=== PATIENT | female | born 1985 | race Caucasian/White ===

== ENCOUNTER 2021-12-26 08:00 | Outpatient (CLI) | payer OTHER, MEDICAID | END 2021-12-26 23:59 | disposition home or self-care (01) | LOC: LAB.WC 08:00 | PROVIDERS: ATTEND Obstetrics & Gynecology | DX: Z36.85 Encounter for antenatal screening for Streptococcus B (principal) | CPT/HCPCS: 87797 ==

== ENCOUNTER 2022-01-20 07:20 | Inpatient (IN) | payer OTHER, MEDICAID ==
[2022-01-20] MEDS ORDERED: LIDOCAINE/PRILOCAINE 2.5% CREAM 5 GM TUBE TOP ONE (08:24)
[2022-01-20] MEDS ORDERED: CARBOPROST TROMETHAMINE 250 MCG/ML AMP IM PRN (08:49)
[2022-01-20] MEDS ORDERED: NIFEdipine 10 MG CAPSULE PO PRN (08:49)
[2022-01-20] MEDS ORDERED: OXYTOCIN/SODIUM CHLORIDE 500 ML IV PRN (08:49)
[2022-01-20] MEDS ORDERED: miSOPROStoL 200 MCG TABLET BC PRN (08:49)
[2022-01-20] MEDS ORDERED: TRANEXAMIC ACID IN NACL 1,000 MG/100 ML BAG IV PRN (08:49)
[2022-01-20] MEDS ORDERED: METHYLERGONOVINE 0.2 MG/ML VIAL IM PRN (08:49)
[2022-01-20] MEDS ORDERED: SODIUM CHLORIDE FLUSH 0.9% 10 ML SYRINGE IVP PRN (08:49)
[2022-01-20] MEDS ORDERED: fentaNYL 100 MCG/2 ML VIAL IVP PRN (08:49)
[2022-01-20] MEDS ORDERED: hydrALAZINE INJ 20 MG/ML VIAL IVP PRN ×2 (08:49)
[2022-01-20] MEDS ORDERED: lidocaine 1% 20 ML MDV ID PRN (08:49)
[2022-01-20] MEDS ORDERED: miSOPROStoL 200 MCG TABLET PR PRN (08:49)
[2022-01-20] MEDS ORDERED: LABETALOL 20 MG/4 ML SYRINGE IVP PRN ×3 (08:49)
[2022-01-20] MEDS ORDERED: TERBUTALINE 1 MG/ML VIAL SUBQ PRN (08:49)
[2022-01-20] MEDS ORDERED: OXYTOCIN 10 UNIT/ML VIAL IM PRN (08:49)
--- NOTE | 2022-01-20 09:00 | HISTORY & PHYSICAL EXAMINATION ---
Admit History - : 2 Parity: 1 Care: positive: [facility] Risk/History: positive: None Complications This : positive: None Smoking Status: Never smoker - Mother's Labs Mother's Blood Type: positive: A Mother's RH: positive: Negative GBS: positive: Group B Step Negative Rubella Status: positive: Immune - Other Maternal History Other Maternal History: HPI: 37-year-old -0-0-1 at 39 weeks 5 days gestation presenting for induction of labor at term. She has good movement. Denies loss of fluid. No JHA/BV or RUQP. No vaginal bleeding. Denies nausea and vomiting. Denies urinary urgency or dysuria. She did have a couple contractions over the weekend, but nothing regular. All other symptoms reviewed and were negative except per HPI. Course LMP: 04/17/2021 SLAVA by LMP: 01/21/2022 Initial U/S: 09/11/2021 Final SLAVA: 01/21/2022 Problem: History of anal fistula. Developed during without injury or history of Crohn's disease. Unsure of etiology. Discussed risk of recurrence with significant vaginal tear. Was perianal to left skin. History of depression: Stopped sertraline due to symptoms. Wants to wait for at this point and will consider alternate medication if necessary. Pre- weight: 160 BMI:25.9 A negative/Rubella immune Rhogam given: 10/29/21 VZV: immune Genetic testing: FAS: EFW 29%ile, posterior placenta, normal JORDAN. Glucola: 83 (done 09/20/21) Influenza: Declined today. TDAP:given 11/18 GBS @36.0- Negative HSV:Denies in self or partner Breast Pump Rx:has one she likes MOD:, likely 39-week induction. Scheduled 01/20/22. Desires epidural. pp contraception:Partner vasectomy pap: 07/10/21-normal Initial GC/CT: negative PMH Anxiety disorder PSH Breast augmentation Anal fistula repair OB History 2019, 39 weeks, , male, 7 pounds 2 ounces, perianal fistula during SH Denies tobacco, alcohol, drugs Family History Noncontributory Allergies No known drug allergies Medications vitamins Ferrous sulfate Physical exam: General: Alert, oriented, no acute distress Head: Normal cephalic atraumatic Eyes: PERRLA, extraocular motions intact. Respiratory: Normal rate of respiration. No accessory muscle use, normal respiratory effort. Cardiovascular: Regular rate and rhythm Abdomen: Gravid, nontender, nondistended Extremities: Normal range of motion Neuro: Oriented x3. Normal movements Psych: Appropriate mood and affect. Normal judgment and insight SVE: 04/11/-3 FHT: 125 BPM baseline, moderate variability, accelerations present, no decelerations [place]: quiescent Meds/Allgy - Allergies Allergies/Adverse Reactions: Allergies Allergy/AdvReac Type Severity Reaction Status Date / Time No Known Drug Allergies Allergy Verified 01/20/22 13:37 Plan for Labor - Plan For Labor I expect patient to be DC'd or transferred within 96 hours.: Yes Plan for Labor: Plan 37-year-old -0-0-1 at 39 weeks 5 days gestation admitted for induction of labor 1. Cervical ripening -Admit for observation, cervical ripening -Misoprostol 25 mcg buccal every 4 hours 2. 39 weeks gestation -Continuous monitoring -Epidural if in active labor 3. History of depression 4. History of anal fistula -Prior to delivery, likely not an obstetrical issue.
[2022-01-20 09:51] LABS: BASOPHILS % (AUTO) 0.2 %; EOSINOPHILS # (AUTO) 0.1 10^3/uL (0.0-0.7); EOSINOPHILS % (AUTO) 1.1 %; HCT - HEMATOCRIT 35.4 % (37.0-47.0); HGB - HEMOGLOBIN 12.6 g/dL (12.0-16.0); LYMPHOCYTES # (AUTO) 1.1 10^3/uL (1.5-3.5); LYMPHOCYTES % (AUTO) 23.6 %; MEAN CORPUSCULAR HEMOGLOBIN 37.2 pg (27.0-31.0); MEAN CORPUSCULAR HGB CONC 35.6 g/dL (32.0-36.0); MEAN CORPUSCULAR VOLUME 104.4 fL (81.0-99.0); MEAN PLATELET VOLUME 11.7 fL (7.9-10.8); MONOCYTES # (AUTO) 0.2 10^3/uL (0.0-1.0); MONOCYTES % (AUTO) 4.9 %; NEUTROPHILS # (AUTO) 3.3 10^3/uL (1.5-6.6); NEUTROPHILS % (AUTO) 69.8 %; PLT - PLATELET COUNT 169 10^3/uL (130-450); RED BLOOD COUNT 3.39 10^6/uL (4.20-5.40); RED CELL DISTRIBUTION WIDTH 12.8 % (12.0-15.0); WHITE BLOOD COUNT 4.7 x10^3/uL (4.8-10.8)
[2022-01-20] MEDS: miSOPROStoL 100 MCG TABLET BC SCH ×4 (09:51→22:45)
[2022-01-20] MEDS: SODIUM CHLORIDE FLUSH 0.9% 10 ML SYRINGE IVP SCH ×2 (09:53→23:56)
--- NOTE | 2022-01-20 20:05 | PROVIDER PROGRESS NOTE ---
Labor Progress Note - Uterine Monitoring Uterine Monitoring Mode: positive: External toco Contraction Frequency (min/apart): 8-10 Contraction Intensity: positive: Moderate Uterine Resting Tone: positive: Soft - Monitoring Monitor Mode: positive: External ultrasound Heart Rate Baseline: 120 Heart Rate Variability: positive: Moderate (6-25 bmp) Accelerations: positive: Present, 15x15 Decelerations: positive: None Strip Review: positive: Category I - Labor Progress Note Labor Progress Note/Additional Text: Patient comfortable, but feeling contractions. Last cervical exam of /-3, soft, posterior. Plan for this time to continue misoprostol for cervical ripening.
--- NOTE | 2022-01-20 23:32 | PROVIDER PROGRESS NOTE ---
Labor Progress Note - Uterine Monitoring Uterine Monitoring Mode: positive: External toco Contraction Frequency (min/apart): 2-7 Contraction Intensity: positive: Moderate to strong Uterine Resting Tone: positive: Soft - Monitoring Monitor Mode: positive: External ultrasound Heart Rate Baseline: 130 Heart Rate Variability: positive: Moderate (6-25 bmp) Accelerations: positive: Present, 15x15 Decelerations: positive: None Strip Review: positive: Category I - Vaginal Exam Dilation (in cm): 4 Effacement (%): 50 Station: -2 Cervical Position: Midposition - Labor Progress Note Labor Progress Note/Additional Text: Patient with significant cervical change since last check. Received dose misoprostol approximately 1 hour ago. Cervical exam currently 4 cm with head well engaged. Amniotomy was performed with a moderate amount of clear fluid. We will augment with oxytocin after 4 hours after misoprostol if necessary.
[2022-01-21] MEDS: LACTATED RINGERS 1,000 ML IV SCH ×2 (00:05→04:52)
[2022-01-21] MEDS ORDERED: ROPIVACAINE 0.2% 200 MG/100 ML BAG EP ONE (00:16)
--- NOTE | 2022-01-21 01:00 | ANESTHESIA ---
Pre-Anesthesia VS, & Labs - Diagnosis active labor - Procedure vaginal delivery Vital Signs: Temp Pulse Resp BP Pulse Ox O2 Flow Rate 37.0 C 62 16 111/72 01/20/22 12:30 01/20/22 12:30 01/20/22 12:30 01/20/22 12:30 Height: 5 ft 7 in Weight (kg): 71.668 kg Body Mass Index: 24.7 BMI Classification: Normal - NPO Other (clear liquids) - Is Patient ?: Yes - Lab Results Current Lab Results: Laboratory Tests 01/20/22 09:56: Blood Type Recheck A NEGATIVE 01/20/22 09:00: Blood Type A NEGATIVE, Antibody Screen NEGATIVE 01/20/22 09:00: WBC 4.7 L, RBC 3.39 L, Hgb 12.6, Hct 35.4 L, MCV 104.4 H, MCH 37.2 H, MCHC 35.6, RDW 12.8, Plt Count 169, MPV 11.7 H, Neut # (Auto) 3.3, Lymph # (Auto) 1.1 L, [place] # (Auto) 0.2, Eos # (Auto) 0.1, Baso # (Auto) 0.0, Absolute Nucleated RBC 0.00, Nucleated RBC % 0.0 Lab results reviewed: Yes Fish Bones: 01/20/22 09:00 Home Medications and Allergies Active Medications Carboprost Tromethamine (Carboprost Tromethamine 250 Mcg/Ml Amp) 250 mcg IM .ONCE PRN PRN Reason: Hemorrhage Fentanyl (Fentanyl 100 Mcg/2 Ml Vial) 50 mcg IVP Q1H PRN PRN Reason: Severe Pain (score 7-10) Hydralazine HCl (Hydralazine Inj 20 Mg/Ml Vial) 5 - 10 mg IVP Q20M PRN; Protocol PRN Reason: SBP> or= 160 OR DBP> or= 110 Hydralazine HCl (Hydralazine Inj 20 Mg/Ml Vial) 10 mg IVP .ONCE PRN; Protocol PRN Reason: SBP> or= 160 OR DBP> or= 110 Oxytocin/Sodium Chloride (Pitocin/Sodium Chloride) 500 mls @ 999 mls/hr IV PRN PRN; Protocol PRN Reason: POST- HEMORR PREVENTION Tranexamic Acid (Tranexamic 1,000 Mg/100ml-Nacl) 1,000 mg in 100 mls @ 600 mls/hr IV Q30M PRN PRN Reason: EBL >1200mL and within 3hr Lactated Ringer's (Lr) 1,000 mls @ 125 mls/hr IV .Q8H [facility] Last Admin: 01/21/22 00:05 Dose: 125 mls/hr Labetalol HCl (Labetalol 20 Mg/4 Ml Syringe) 20 - 80 mg IVP Q10M PRN; Protocol PRN Reason: SBP> or= 160 OR DBP> or= 110 Labetalol HCl (Labetalol 20 Mg/4 Ml Syringe) 20 mg IVP .ONCE PRN; Protocol PRN Reason: SBP> or= 160 OR DBP> or= 110 Labetalol HCl (Labetalol 20 Mg/4 Ml Syringe) 20 - 40 mg IVP Q10M PRN; Protocol PRN Reason: SBP> or= 160 OR DBP> or= 110 Lidocaine HCl (Lidocaine 1% 20 Ml Mdv) 20 ml ID .ONCE PRN PRN Reason: PERINEAL REPAIR Stop: 01/23/22 08:49 Methylergonovine Maleate (Methylergonovine 0.2 Mg/Ml Vial) 0.2 mg IM .ONCE PRN PRN Reason: Hemorrhage Misoprostol (Misoprostol 200 Mcg Tablet) 600 mcg BC .ONCE PRN PRN Reason: Hemorrhage Misoprostol (Misoprostol 200 Mcg Tablet) 800 mcg MN .ONCE PRN PRN Reason: Hemorrhage Misoprostol (Misoprostol 100 Mcg Tablet) 25 mcg BC Q4H [facility] Last Admin: 01/20/22 22:45 Dose: 25 mcg Nifedipine (Nifedipine 10 Mg Capsule) 10 - 20 mg PO Q20M PRN; Protocol PRN Reason: SBP> or= 160 OR DBP> or= 110 Oxytocin (Oxytocin 10 Unit/Ml Vial) 10 unit IM .ONCE PRN PRN Reason: Step One if no IV access. Sodium Chloride (Sodium Chloride Flush 0.9% 10 Ml Syringe) 10 ml IVP PRN PRN PRN Reason: NEEDED PER PROVIDER ORDERS Sodium Chloride (Sodium Chloride Flush 0.9% 10 Ml Syringe) 10 ml IVP Q8H [facility] Last Admin: 01/20/22 23:56 Dose: 10 ml Terbutaline Sulfate (Terbutaline 1 Mg/Ml Vial) 0.25 mg SUBQ .ONCE PRN PRN Reason: Tachystole Allergies/Adverse Reactions: Allergies Allergy/AdvReac Type Severity Reaction Status Date / Time No Known Drug Allergies Allergy Verified 01/20/22 13:37 Anes History & Medical History - Anesthetic History Anesthesia Complications: reports: No previous complications - Medical History Cardiovascular: reports: None Pulmonary: reports: None Gastrointestinal: reports: None Urinary: reports: None Neuro: reports: None Musculoskeletal: reports: None Endocrine/Autoimmune: reports: None Blood Disorders: reports: None Skin: reports: None Smoking Status: Never smoker Psychosocial: reports: Depression History of Cancer?: No - Surgical History General: reports: Other (anal fistula repair) Gynecologic: reports: Breast implants - Obstetrical History : 2 Parity: 1 Events: reports: None Complications: reports: None Exam General: Alert, Oriented x3, Cooperative, No acute distress Dental: WNL Mouth Openin Fingerbreadth Neck Mobility: Normal Mallampati classification: II Thyromental Distance: 4-6 cm Mental/Cognitive Status: Alert/Oriented X3, Normal for patient Plan Anesthesia Type: Epidural Consent for Procedure(s) Verified and Reviewed: Yes Code Status: Attempt Resuscitation ASA classification: 2-Mild systemic disease Is this case an emergency?: No
[2022-01-21] MEDS ORDERED: ONDANSETRON 4 MG/2 ML VIAL IVP PRN (01:01)
[2022-01-21] MEDS ORDERED: NALBUPHINE 10 MG/ML AMP IVP PRN (01:01)
[2022-01-21] MEDS ORDERED: ROPIVACAINE 0.2% 200 MG/100 ML BAG EP PRN (01:01)
[2022-01-21] MEDS ORDERED: NALOXONE 0.4 MG/ML VIAL IVP PRN (01:01)
[2022-01-21] MEDS ORDERED: ePHEDrine 50 MG/ML VIAL IVP PRN (01:01)
[2022-01-21] MEDS ORDERED: SIMETHICONE CHEW 80 MG TABLET PO PRN (07:07)
--- NOTE | 2022-01-21 07:07 | DELIVERY NOTE ---
Delivery Note - Labor Labor: positive: Augmented by ARM - Infant Delivery Method Delivery Method: positive: Spontaneous vaginal delivery - Cervical Ripening Method Cervical Ripening Method: positive: Misoprostil - Presentation Presentation: positive: [place] - right occiput anterior - Nuchal Cord Nuchal Cord: positive: None - Anesthetic Anesthetic Type: - Amniotic Fluid Description Amniotic Fluid Description: positive: Clear - Episiotomy Type Episiotomy Type: positive: None - Laceration Laceration: positive: 2nd degree, Periurethral - Delivery Outcome Delivery Outcome: positive: Livebirth - : positive: Placed in direct skin contact with mother, Bulb syringe, [place] used [place] sex: positive: Male - Placenta Placenta: positive: Intact - Estimated Blood Loss Estimated Blood Loss (in cc): 350 - Post Delivery Events Post Delivery Events: positive: No post delivery events - Delivery Comments (Free Text/Narrative) Delivery Comments (Free Text/Narrative): Delivery note procedures preoperative Diagnoses 39 weeks gestation Induction of labor Rh- Postoperative Diagnoses Same Status post spontaneous vaginal delivery of a live dumont Delivery Summary: Patient was placed in the dorsal lithotomy position. Upon maternal pushing the head was delivered atraumatically followed by the anterior shoulder, posterior shoulder, then the remainder of the infant's body. A male was delivered with APGARS of 8 at 1 minute and 9 at 5 minutes. The was placed on its mother's chest . After the cord finished pulsating, the umbilical cord was clamped times two and cut. The placenta delivered intact with three vessel cord. Placenta was not sent to pathology. Thirty units of Pitocin were added to the IV fluid and allowed to run freely. Uterine massage was performed until uterus was deemed firm. [place] patient perineum, a second-degree midline laceration and a urethral laceration was noted. The periurethral laceration was bleeding briskly and was repaired with 2 [id number] stitches of 3-0 chromic. The second degree laceration was noted which was repaired with 3-0 vicryl in the usual fashion. The second Uterus again massaged and found to be firm. Needle and sponge counts were correct. Patient was stable and allowed to recover in L&D room. Infant was stable and remained in room with mother. weight is pending at this time.
[2022-01-21] MEDS ORDERED: LACTATED RINGERS 1,000 ML IV SCH (08:00)
[2022-01-21] MEDS: IBUPROFEN 600 MG TABLET PO SCH ×2 (08:17→17:06)
[2022-01-21] MEDS: ACETAMINOPHEN 500 MG TABLET PO SCH ×2 (11:21→20:37)
[2022-01-21] MEDS: SODIUM CHLORIDE FLUSH 0.9% 10 ML SYRINGE IVP SCH (18:01)
[2022-01-21] MEDS: DOCUSATE SODIUM 100 MG CAPSULE PO PRN (20:37)
[2022-01-22] MEDS: IBUPROFEN 600 MG TABLET PO SCH ×2 (00:43→08:31)
[2022-01-22] MEDS: ACETAMINOPHEN 500 MG TABLET PO SCH (04:52)
[2022-01-22] MEDS: DOCUSATE SODIUM 100 MG CAPSULE PO PRN (08:31)
[2022-01-22 08:48] VITALS: BP 114/64
--- NOTE | 2022-01-22 10:00 | Discharge Plan ---
Discharge Plan Problem Reviewed?: Yes Disposition: Home, Self Care Condition: Good Diet: Regular Shower Restrictions: No Instruction Topics: Vaginal After No Smoking: If you smoke, Please STOP! Call for help. Follow-up with: Floyd Chung MD [Provider Admit Priv/Credential] -
--- NOTE | 2022-01-22 10:09 | DISCHARGE SUMMARY ---
Discharge Summary Admit Date: 01/20/22 Discharge Date: 01/22/22 Discharging Provider: Floyd Chung MD Code Status: Attempt Resuscitation Condition at Discharge: Good Discharge Disposition: 01 Home, Self Care - DIAGNOSES Admission Diagnoses: 39 weeks gestation - HPI History of Present Illness: Subjective Patient reports she is doing well. Lochia appropriate. Denies heavy bleeding. Ambulating. Pelvic and abdominal pain well-controlled. Tolerating oral intake. Diet: Regular. Voiding without difficulty. Passing flatus. Denies BM. Patient is bonding with baby in room Breast feeding going well. Denies feeling lightheaded, dizzy or excessively fatigued. Objective General: Alert, oriented, no apparent distress. Cardiovascular: Regular rate. Regular rhythm. Lungs: No increased work of breathing. Abdomen: Uterus firm. Below umbilicus. No guarding or rebound. - HOSPITAL COURSE Hospital Course: Patient was admitted for 39 weeks gestation for an induction of labor. She received misoprostol then amniotomy. She received an epidural for pain control. Labor was uneventful. She delivered a healthy male weighing 3116 g. course was unremarkable. She was discharged on day 1. - ALLERGIES Allergies/Adverse Reactions: Allergies Allergy/AdvReac Type Severity Reaction Status Date / Time No Known Drug Allergies Allergy Verified 01/20/22 13:37 - LABS Result Diagrams: 01/20/22 09:00 - FOLLOW UP Follow Up: In one week with [facility]. - TIME SPENT Time Spent in Discharge (Minutes): 20
--- NOTE | 2022-01-22 13:30 | Labor Flowsheet ---
Labor Flowsheet Datetime Report Generated by CPN: 01/22/2022 13:30 Datetime: 01/21/2022 16:13 VITAL SIGNS NBP Sys/Autumn/Mean (mmHg): 111 : 87 : 94 Pulse: 65 Datetime: 01/21/2022 08:31 Stage of : Recovery PAIN Pain Scale: 5 Pain Presence: Intermittent Pain Type: Cramping Pain Location: Abdomen Pain Goal: 2 Pain Relief Measures: Comfort Measures Datetime: 01/21/2022 08:16 Pain Assessment Comments: c/o pain in lower back at epidural site. epidural catheter removed withou t incident. warm pack given for comfort Datetime: 01/21/2022 07:15 Temperature (C): 37.2 Temperature Route: Oral Datetime: 01/21/2022 07:10 Respirations: 47 Temperature (F): 97.7 Temperature (C): 36.5 Datetime: 01/21/2022 06:45 SpO2 (%): 100 Datetime: 01/21/2022 06:40 LaborFlag: Labor Datetime: 01/21/2022 06:31 UTERINE ACTIVITY Monitor Mode: External Frequency (min): 1.5-2 Quality: Moderate Duration (sec): 45-60 Pattern: Normal: <= 5 Contractions in 10 Minutes Resting Tone (Palpate): Relaxed ASSESSMENT A Monitor Mode: Telemetry FHR Baseline Rate : 95 Variability: Minimal - Undetectable to <=5 bpm Decelerations: Prolonged Category: Category II Comments: Datetime: 01/21/2022 06:26 STAGE 2 Pushing: Coached on Pushing; Urge to Push Pushing Position: Pushing with Contractions Pushing Progress: with Pushing Datetime: 01/21/2022 06:25 Accelerations: None Datetime: 01/21/2022 06:17 Provider Reviewed Strip: Yes COMMUNICATION Communication: Provider at Bedside Provider Notified (Name): Dr Sheldon here Datetime: 01/21/2022 06:15 FHR Baseline Changes: No Baseline Change Actions for Decelerations: Sterile Vaginal Exam; Provider Notified (Annotations: FHR dec to 60-100s over 3min; SVE done: /+2; OB provider/Dr Chung notified and en route to hospital for delivery) Datetime: 01/21/2022 06:11 Patient Care Comments: [place] out, 50ml urine Datetime: 01/21/2022 06:07 Notification Reason: Status Update; Labor Status Communication Comments: Requested provider to come in for delivery Datetime: 01/21/2022 06:05 VAGINAL EXAM Dilatation (cm): 10.0 Effacement (%): 100 Station: 2 Exam by: RNC Spear Vaginal Bleeding: Normal Show Cervix, Consistency: Soft Cervix, Position: Anterior Datetime: 01/21/2022 06:00 Vital Sign Comments: Datetime: 01/21/2022 05:30 Pain Coping: Sleeping Anesthesia Level Check: T8- Ribs Datetime: 01/21/2022 05:29 Membranes Ruptured Date/Time: 01/20/2022 23:25 Cervical Ripening Agents Other: None Datetime: 01/21/2022 04:51 PATIENT CARE IV/Blood Work: New IV Bag Hung; IV Bag Number @ 2 Datetime: 01/21/2022 04:30 Contraction Comments: occasional coupling of UCs MATERNAL ASSESSMENT Level of Consciousness: Drowsy ANESTHESIA Anesthesia Plans: Epidural Datetime: 01/21/2022 03:16 Patient Position/Activity: Right Lateral Datetime: 01/21/2022 02:36 Monitor Interventions for UA: [place] Adjusted Datetime: 01/21/2022 02:25 I/O Interventions: [place] Cath Inserted Datetime: 01/21/2022 01:01 Oxygen Method: Room Air Datetime: 01/21/2022 00:59 Epidural Procedure Other: Pump Started Datetime: 01/21/2022 00:50 Comfort Measures: Breathing/Relaxation; Family Support Datetime: 01/21/2022 00:43 Epidural Procedure: Loading Dose Datetime: 01/21/2022 00:27 PROCEDURE TIME OUT Procedure Verify: Correct Patient Identity; Correct Side and Site are Marked; Accurate Procedure Co nsent Form; Agreement on Procedure to be Done; Correct Patient Position; Safety Precautions Based on Patient History or Medication Use Epidural Positioning: Sitting Datetime: 01/21/2022 00:24 Anesthesia Comments: Time out Datetime: 01/21/2022 00:22 TEACHING Instructional Method: Verbal; Written; Patient Instructed; Family/Support Person Instructed; Verbal ized Understanding Plan of Care: Plan of Care Discussed Pain Management: Epidural Teaching Comments: Reviewed epidural procedure with couple Datetime: 01/20/2022 23:51 DTR's/Clonus: DTRs 2+; No Clonus Headache: Denies Breath Sounds, Left: Clear and Equal Breath Sounds, Right: Clear and Equal Nausea/Vomiting: Denies RUQ Epigastric Pain: Denies Datetime: 01/20/2022 23:25 Membrane Status: Ruptured Membranes Rupture Method: Artificial Amniotic Fluid Color: Clear Amniotic Fluid Amount: Moderate Amniotic Fluid Odor: Normal Datetime: 01/20/2022 22:45 MEDICATIONS Cervical Ripening Agents: Cytotec @ Datetime: 01/20/2022 16:39 Monitor Interventions for FHR: Ultrasound Adjusted Datetime: 01/20/2022 16:15 Strip Reviewed by: Dr Chung
== END 2022-01-22 12:30 | disposition home or self-care (01) | DRG 807 ==
LOC: WFO 07:20 → FBP 07:36 → WFO 08:48 → FBP 08:49 → OBSVTOIN 23:29
PROVIDERS: ADMIT Obstetrics & Gynecology; ATTEND Obstetrics & Gynecology
PROC: 3E0DXGC Introduction of Other Therapeutic Substance into Mouth and Pharynx, External Approach (ICD-10-PCS; principal; 2022-01-20)
PROC: 10907ZC Drainage of Amniotic Fluid, Therapeutic from Products of Conception, Via Natural or Artificial Opening (ICD-10-PCS; 2022-01-20)
PROC: 10E0XZZ Delivery of Products of Conception, External Approach (ICD-10-PCS; 2022-01-21)
PROC: 0KQM0ZZ Repair Perineum Muscle, Open Approach (ICD-10-PCS; 2022-01-21)
DX: O70.1 Second degree perineal laceration during delivery (principal); Z37.0 Single live birth; Z3A.39 39 weeks gestation of pregnancy
CPT/HCPCS: 85025; 86850; 86900; 86901; A9270; J3490; J7120; 83033

== ENCOUNTER 2022-11-06 07:59 | Outpatient (CLI) | payer OTHER, MEDICAID ==
[2022-11-06 11:54] LABS: BASOPHILS % (AUTO) 0.5 %; EOSINOPHILS # (AUTO) 0.2 10^3/uL (0.0-0.7); EOSINOPHILS % (AUTO) 3.9 %; HCT - HEMATOCRIT 43.5 % (37.0-47.0); HGB - HEMOGLOBIN 14.2 g/dL (12.0-16.0); LYMPHOCYTES % (AUTO) 17.6 %; MEAN CORPUSCULAR HGB CONC 32.6 g/dL (32.0-36.0); MEAN CORPUSCULAR VOLUME 104.1 fL (81.0-99.0); MEAN PLATELET VOLUME 11.3 fL (7.9-10.8); MONOCYTES # (AUTO) 0.3 10^3/uL (0.0-1.0); MONOCYTES % (AUTO) 5.4 %; NEUTROPHILS # (AUTO) 4.3 10^3/uL (1.5-6.6); NEUTROPHILS % (AUTO) 72.4 %; PLT - PLATELET COUNT 249 10^3/uL (130-450); RED BLOOD COUNT 4.18 10^6/uL (4.20-5.40); WHITE BLOOD COUNT 5.9 x10^3/uL (4.8-10.8)
[2022-11-06 12:36] LABS: ALBUMIN 4.6 g/dL (3.2-5.5); ALBUMIN/GLOBULIN RATIO 1.7 (1.0-2.2); ALKALINE PHOSPHATASE 55 IU/L (42-121); ALT ALANINE AMINOTRANSFERASE 5 IU/L (10-60); AST ASPARTATE AMINOTRANSFERASE 13 IU/L (10-42); BILIRUBIN,TOTAL 0.5 mg/dL (0.2-1.0); BUN - BLOOD UREA NITROGEN 16 mg/dL (6-20); CALCIUM 9.5 mg/dL (8.5-10.3); CARBON DIOXIDE - CO2 23 mmol/L (21-32); CHLORIDE 107 mmol/L (101-111); CHOL/HDL RATIO 2.6 (<4.4); CHOLESTEROL 204 mg/dL; CREATININE 0.8 mg/dL (0.6-1.3); GFR - MDRD 82 (>89); GLUCOSE 92 mg/dL (74-104); HDL CHOLESTEROL 77 mg/dL; LDL CHOLESTEROL,CALCULATED 112 mg/dL; LDL/HDL RATIO 1.5 (<4.4); POTASSIUM 4.3 mmol/L (3.5-4.5); SODIUM 138 mmol/L (135-145); TOTAL PROTEIN 7.3 g/dL (6.4-8.9); TRIGLYCERIDES 75 mg/dL (48-352); VLDL CHOLESTEROL 15 mg/dL
== END 2022-11-06 08:00 | disposition home or self-care (01) ==
LOC: LAB.N 07:59
PROVIDERS: ATTEND Physician Assistant
DX: Z13.9 Encounter for screening, unspecified (principal)
CPT/HCPCS: 36415; 80053; 80061; 83721; 84443; 85025